=== PATIENT | female | born 1955 | race Caucasian/White ===

== ENCOUNTER 2019-04-14 16:12 | Emergency (ER) | payer OTHER ==
[~2019-04-14] VITALS: Ht 157 cm; Wt 72.1 kg
--- NOTE | 2019-04-14 17:01 | ED Chest Pain ---
General Chief Complaint: Chest Pain Stated Complaint: POSS HEART PROBLEMS Nursing Triage Note: Has had chest heaviness x 2 days that feels like "something sitting on my chest and a band around my chest." Today has started having sharp stabbing pains in the sternal area that are worse when she pushes on her chest. Also states it is "hard to catch my breath." Has hx of hypertension, hyperlipidemia, and TIA's. Nursing Sepsis Screen: No Definite Risk History of Present Illness Date Seen by Provider: Apr 14, 2019 Time Seen by Provider: 16:05 Initial Comments Patient with chest pain is had chest pain over the last 2-3 days became sharper and more palpable today could reproduce it by pushing on the chest but is also some deeper pressure concerned that something going on slit TIAs in the past with stuttering is not on any blood thinners has never had a heart attack is hypertensive hypercholesterolemic has not smoked has no diabetes and does have some family history is not been worked up in the past. Timing/Duration: 4-6 hours Severity/Quality: mild, moderate, dull, pressure, sharp Location: substernal Radiation: neck Activities at Onset: none Modifying Factors: improves with breathing, improves with palpation Associated Symptoms: No back pain, No fatigue, No fever/chills, No headache, No heartburn, No nausea/vomiting, No shortness of breath, No weakness Allergies and Home Medications Allergies Coded Allergies: cefuroxime (Verified Allergy, Unknown, 04/14/19) hydrocodone (Verified Allergy, Unknown, 04/14/19) Patient Home Medication List Home Medication List Reviewed: Yes Review of Systems Review of Systems Constitutional: No chills, No fever, No malaise EENTM: No Ear Pain, No Throat Pain, No Throat Swelling Respiratory: Denies Cough, Denies Shortness of Air, Denies Wheezing Cardiovascular: Chest Pain; Denies Edema, Denies Irregular Heart Rate, Denies Lightheadedness, Denies Palpitations Gastrointestinal: Denies Abdominal Pain, Denies Diarrhea, Denies Nausea, Denies Vomiting Genitourinary: Denies Drainage, Denies Frequency, Denies Pain Musculoskeletal: No back pain, No muscle pain Skin: No lesions, No rash Psychiatric/Neurological: Denies Numbness, Denies Tingling, Denies Weakness Past Ayftecz-[id number]-Nunplb Hx Past Med/Social Hx: Reviewed Nursing Past Med/Soc Hx Patient Social History Alcohol Use: Denies Use Recreational Drug Use: No Smoking Status: Never a Smoker 2nd Hand Smoke Exposure: No Recent Foreign Travel: No Contact w/Someone Who Travel: No Recent Infectious Disease Expo: No Recent Hopitalizations: No Physical Abuse: No Sexual Abuse: No Mistreated: No Fear: No Seasonal Allergies Seasonal Allergies: No Past Medical History Surgeries: Yes Gallbladder Respiratory: No Cardiac: Yes High Cholesterol, Hypertension Neurological: Yes TIA Genitourinary: No Gastrointestinal: Yes Gastroesophageal Reflux Musculoskeletal: No Endocrine: No HEENT: No Cancer: No Psychosocial: No Integumentary: No Blood Disorders: No Adverse Reaction/Blood Tranf: No Physical Exam Vital Signs Vital Signs - First Documented 04/14/19 16:38 Temp 36.7 Pulse 111 Resp 19 B/P (MAP) 167/109 (128) Pulse Ox 98 Capillary Refill : Less Than 3 Seconds Height, Weight, BMI Height: '" Weight: lbs. oz. kg; 29.00 BMI Method: General Appearance: No Apparent Distress, WD/WN HEENT: TMs Normal, Pharynx Normal Neck: Normal Inspection, Non Tender Respiratory: No Chest Non Tender (chest is acutely tender left sternal border about T4 ribs 78 also tender along there.); Lungs Clear, Normal Breath Sounds Cardiovascular: No Regular Rate, Rhythm, No No Murmur Gastrointestinal: No No Organomegaly, No Non Tender, No Soft Extremity: Normal Inspection Neurologic/Psychiatric: Alert, Oriented x3 Skin: Normal Color, Warm/Dry Progress/Results/Core Measures Results/Orders Lab Results Laboratory Tests Test 04/14/19 16:15 04/14/19 16:34 Range/Units Urine Color YELLOW Urine Clarity SL CLOUDY Urine pH 5.5 5-9 Urine Specific [place] >=1.030 1.016-1.022 Urine Protein NEGATIVE NEGATIVE Urine Glucose (UA) NEGATIVE NEGATIVE Urine Ketones NEGATIVE NEGATIVE Urine Nitrite NEGATIVE NEGATIVE Urine Bilirubin NEGATIVE NEGATIVE Urine Urobilinogen 0.2 < = 1.0 MG/DL Urine Leukocyte Esterase 2+ H NEGATIVE Urine RBC (Auto) NEGATIVE NEGATIVE Urine RBC NONE /HPF Urine WBC 10-25 H /HPF Urine Squamous Epithelial Cells 2-5 /HPF Urine Crystals NONE /LPF Urine Bacteria MODERATE H /HPF Urine Casts NONE /LPF Urine Mucus NEGATIVE /LPF Urine Culture Indicated YES White Blood Count 13.1 H 4.3-11.0 10^3/uL Red Blood Count 4.59 4.35-5.85 10^6/uL Hemoglobin 13.2 11.5-16.0 G/DL Hematocrit 40 35-52 % Mean Corpuscular Volume 87 80-99 FL Mean Corpuscular Hemoglobin 29 25-34 PG Mean Corpuscular Hemoglobin Concent 33 32-36 G/DL Red Cell Distribution Width 13.7 10.0-14.5 % Platelet Count 358 130-400 10^3/uL Mean Platelet Volume 10.1 7.4-10.4 FL Neutrophils (%) (Auto) 69 42-75 % Lymphocytes (%) (Auto) 25 12-44 % Monocytes (%) (Auto) 5 0-12 % Eosinophils (%) (Auto) 1 0-10 % Basophils (%) (Auto) 0 0-10 % Neutrophils # (Auto) 9.1 H 1.8-7.8 X 10^3 Lymphocytes # (Auto) 3.3 1.0-4.0 X 10^3 Monocytes # (Auto) 0.6 0.0-1.0 X 10^3 Eosinophils # (Auto) 0.1 0.0-0.3 10^3/uL Basophils # (Auto) 0.0 0.0-0.1 10^3/uL Neutrophils % (Manual) 67 % Lymphocytes % (Manual) 27 % Monocytes % (Manual) 4 % Eosinophils % (Manual) 0 % Basophils % (Manual) 0 % Band Neutrophils 2 % Blood Morphology Comment NORMAL D-Dimer 1.06 H 0.00-0.49 UG/ML Sodium Level 143 135-145 MMOL/L Potassium Level 3.2 L 3.6-5.0 MMOL/L Chloride Level 103 98-107 MMOL/L Carbon Dioxide Level 25 21-32 MMOL/L Anion Gap 15 H 5-14 MMOL/L Blood Urea Nitrogen 16 7-18 MG/DL Creatinine 0.85 0.60-1.30 MG/DL Estimat Glomerular Filtration Rate > 60 BUN/Creatinine Ratio 19 Glucose Level 129 H 70-105 MG/DL Calcium Level 10.0 8.5-10.1 MG/DL Corrected Calcium 8.5-10.1 MG/DL Total Bilirubin 0.3 0.1-1.0 MG/DL Aspartate Amino Transf (AST/SGOT) 18 5-34 U/L Alanine Aminotransferase (ALT/SGPT) 17 0-55 U/L Alkaline Phosphatase 131 40-136 U/L Troponin I < 0.30 <0.30 NG/ML Total Protein 8.1 6.4-8.2 GM/DL Albumin 4.7 H 3.2-4.5 GM/DL My Orders Orders - ALVIN COUCH JR, MD Cbc And Manual Diff (04/14/19 16:48) Comprehensive Metabolic Panel (04/14/19 16:48) Troponin I Fs (04/14/19 16:48) Fibrin Degradation Products (04/14/19 16:48) Ua Culture If Indicated (04/14/19 16:48) Ekg Tracing (04/14/19 16:48) Chest 1 View Ap/Pa Only (04/14/19 16:48) Urine Culture (04/14/19 16:15) Ct Angio Chest W (04/14/19 17:46) Medications Given in ED Current Medications Medications Dose Ordered Sig/Renan Route Start Time Stop Time Status Last Admin Dose Admin Iohexol 125 ml ONCE ONCE IV 04/14/19 18:00 04/14/19 18:01 DC 04/14/19 18:12 125 ML Sodium Chloride 10 ml NEEDED PRN IV 04/14/19 18:00 04/14/19 18:12 10 ML Sodium Chloride 100 ml ONCE ONCE IV 04/14/19 18:00 04/14/19 18:01 DC 04/14/19 18:12 80 ML Vital Signs/I&O 04/14/19 16:38 Temp 36.7 Pulse 111 Resp 19 B/P (MAP) 167/109 (128) Pulse Ox 98 Blood Pressure Mean: 128 Progress Progress Note : Time: 18:36 Progress Note Patient had had a PE in the past about 10 years ago however for some reason was never put on blood thinners at this point written ahead and did a CT angiogram in light of an elevated d-dimer and pleuritic type symptoms no blood clot was found she does have the UTI will treat that with Keflex whatever follow-up with her PCP for potential cardiology workup Initial ECG Impression Date: Apr 14, 2019 Initial ECG Impression Time: 16:25 Initial ECG Rhythm: S.Tach Initial ECG Intervals: Normal Initial ECG Impression: Nonspecific Changes Departure Impression Primary Impression: Chest pain Qualified Codes: R07.82 - Intercostal pain Additional Impression: Acute urinary tract infection Disposition: HOME, SELF-CARE Condition: Stable Departure-Patient Inst. Referrals: NO,LOCAL PHYSICIAN (PCP/Family) Primary Care Physician Patient Instructions: Chest Pain That Is Not Caused by the Heart (DC), Urinary Tract Infection, Adult (DC) Scripts Nitrofurantoin Monohyd/M-Cryst (Macrobid 100 mg Capsule) 100 Mg Capsule 1 TAB PO BID, #20 CAP Prov: ALVIN COUCH JR, MD 04/14/19 ALVIN COUCH JR, MD Apr 14, 2019 17:00
--- NOTE | 2019-04-14 17:08 | Diagnostic Imaging Report ---
EXAM: Chest one view at 4:34 PM INDICATION: Shortness of breath COMPARISON: There are no prior studies available for comparison. FINDINGS: The heart size is within normal limits. The lungs are clear. There is no evidence for failure, pneumonia or of pleural effusion. The mediastinum is not widened. The osseous structures are intact. There is deformity of the midshaft of the right clavicle due to a long-standing fracture. IMPRESSION: There is no evidence for active disease. Dictated by: Dictated on workstation # [id number]
[2019-04-14 17:10] LABS: BASOPHILS % (AUTO) 0 % (0-10); EOSINOPHILS # (AUTO) 0.1 10^3/uL (0.0-0.3); EOSINOPHILS % (AUTO) 1 % (0-10); HEMATOCRIT 40 % (35-52); HEMOGLOBIN 13.2 G/DL (11.5-16.0); LYMPHOCYTES # (AUTO) 3.3 X 10^3 (1.0-4.0); LYMPHOCYTES % (AUTO) 25 % (12-44); MEAN CORPUSCULAR HEMOGLOBIN 29 PG (25-34); MEAN CORPUSCULAR HGB CONC 33 G/DL (32-36); MEAN CORPUSCULAR VOLUME 87 FL (80-99); MEAN PLATELET VOLUME 10.1 FL (7.4-10.4); MONOCYTES # (AUTO) 0.6 X 10^3 (0.0-1.0); MONOCYTES % (AUTO) 5 % (0-12); NEUTROPHILS # (AUTO) 9.1 X 10^3 (1.8-7.8); NEUTROPHILS % (AUTO) 69 % (42-75); PLATELET COUNT 358 10^3/uL (130-400); RED CELL DISTRIBUTION WIDTH 13.7 % (10.0-14.5); WHITE BLOOD COUNT 13.1 10^3/uL (4.3-11.0)
[2019-04-14 17:19] LABS: EOSINOPHILS % (MANUAL) 0 %; NEUTROPHILS % (MANUAL) 67 %
[2019-04-14 17:20] LABS: BAND NEUTROPHILS 2 %; BASOPHILS % (MANUAL) 0 %; LYMPHOCYTES % (MANUAL) 27 %; MONOCYTES % (MANUAL) 4 %; RBC MORPH NORMAL
[2019-04-14 17:31] LABS: BILIRUBIN,URINE NEGATIVE (NEGATIVE); CLARITY,URINE SL CLOUDY; COLOR,URINE YELLOW; GLUCOSE, URINE (UA) NEGATIVE (NEGATIVE); KETONES,URINE NEGATIVE (NEGATIVE); LEUKOCYTE ESTERASE ,URINE 2+ (NEGATIVE); NITRITE,URINE NEGATIVE (NEGATIVE); PH,URINE 5.5 (5-9); PROTEIN,URINE NEGATIVE (NEGATIVE)
[2019-04-14 17:32] LABS: BACTERIA,URINE MODERATE /HPF
[2019-04-14 17:36] LABS: ALANINE AMINOTRANSFERASE 17 U/L (0-55); ALKALINE PHOSPHATASE 131 U/L (40-136); BILIRUBIN,TOTAL 0.3 MG/DL (0.1-1.0); BUN/CREATININE RATIO 19; CARBON DIOXIDE 25 MMOL/L (21-32); CHLORIDE 103 MMOL/L (98-107); CREATININE SERUM 0.85 MG/DL (0.60-1.30); GFR ESTIMATED > 60; GLUCOSE 129 MG/DL (70-105); POTASSIUM 3.2 MMOL/L (3.6-5.0); SODIUM 143 MMOL/L (135-145); TOTAL PROTEIN 8.1 GM/DL (6.4-8.2)
[2019-04-14 17:37] LABS: ALBUMIN 4.7 GM/DL (3.2-4.5)
[2019-04-14] MEDS ORDERED: HOLD METFORMIN - RECEIVED CONTRAST 20 ML VIAL IV SCH (18:00)
[2019-04-14] MEDS ORDERED: IOHEXOL 350 MG/ML 150 ML (OMNIPAQUE 350) VIAL IV ONE (18:00)
[2019-04-14] MEDS ORDERED: NS 100 ML (IVPB) BAG IV ONE (18:00)
[2019-04-14] MEDS ORDERED: CATHETER FLUSH 10 ML SYR IV PRN (18:00)
--- NOTE | 2019-04-14 18:29 | Diagnostic Imaging Report ---
PROCEDURE: CT angiography of the chest with contrast. TECHNIQUE: Multiple contiguous axial images were obtained through the chest after uneventful bolus administration of intravenous contrast. 3D reconstructed CTA MIP acquisitions were also performed. Auto Exposure Controls were utilized during the CT exam to meet ALARA standards for radiation dose reduction. INDICATION: Chest heaviness for 2 days. COMPARISON: No prior CT chest studies are available for comparison. FINDINGS: Evaluation of the pulmonary arterial system is without evidence of thromboembolism. No filling defects are seen within central, lobar or segmental branches. The thoracic aorta is normal caliber. There is no dissection. No pericardial or pleural fluid is identified. No axillary, hilar or mediastinal lymphadenopathy is seen. Central airways appear to be patent. Lungs are clear. No infiltrates, nodules or masses are seen. Upper abdomen is unremarkable. IMPRESSION: 1. No evidence of pulmonary embolism or thoracic aortic dissection. 2. No acute features detected. Dictated by: Dictated on workstation # [id number]
[2019-04-14] MEDS ORDERED: NITR-65 PO (18:40)
[2019-04-14 18:43] VITALS: BP 165/92
== END 2019-04-14 18:45 | disposition home or self-care (01) ==
LOC: EDUNIT# 16:12 → ER FS 16:15
DX: R07.9 Chest pain, unspecified (principal); N39.0 Urinary tract infection, site not specified; I10 Essential (primary) hypertension; E78.00 Pure hypercholesterolemia, unspecified; K21.9 Gastro-esophageal reflux disease without esophagitis; Z86.73 Personal history of transient ischemic attack (TIA), and cerebral infarction without residual deficits; Z88.1 Allergy status to other antibiotic agents; Z88.5 Allergy status to narcotic agent
CPT/HCPCS: 36415; 71045; 71275; 80053; 81000; 84484; 85007; 85027; 85379; 87077; 87088; 93005